=== PATIENT | female | born 1985 | race Caucasian/White ===

== ENCOUNTER 2016-12-27 21:57 | Emergency (ER) | payer OTHER ==
[~2016-12-27] VITALS: Ht 162.6 cm; Wt 55.9 kg
[~2016-12-27 21:57] MED LIST: COL100L PO; HYDR1TAB91 PO; IBUP-1152 PO; PREN-121 PO
[2016-12-27 22:10] VITALS: BP 151/106; PULSE 105; RESP 18; O2SAT 98
[2016-12-27] MEDS ORDERED: 0.9% Sodium Chloride 1,000 ML IV ONE (23:56)
[2016-12-28] MEDS ORDERED: Clindamycin Inj 900 MG in IV Premix 1 EACH IV ONE
--- NOTE | 2016-12-28 00:11 | ED.REPORT ---
HPI-General Illness Date of Service Dec 27, 2016 ED Provider: Mark Plasencia MD The patient is a 31 yo female with history of HTN and fibromyalgia who presents to the ED with her mother for a right 4th finger infection for 2-3 weeks. She reports to injure her finger somehow while doing some gardening. She is certain that it was not a thorn. The pain is minimal and she has been applying topical Neosporin. However, she tends to bite her nails and possibly makes the infection worse. She has noted some pus coming out from the corner of the nail. Around 1500 today, she notes some pain in her right arm, like "a pulled muscle. " The pain turns into a red streak from the elbow up to her axilla at around 1800 tonight, and thus she is concerned of a "septic shock." Patient otherwise denies any symptoms, including fever, chills, headache, CP, SOB, nausea, or vomiting. She reports to have fast heart rate usually and her PCP has done workups in the past but everything has been negative. Her home BP is usually controlled in the 120s/80s with HCTZ. Of note, patient was diagnosed with MRSA cellulitis on her cheek 6 years ago, but she was not hospitalized then. She was treated with Bactrim as outpatient and reports no complication. Nursing Notes Stated Complaint: RED LINE UP ARM Chief Complaint: Skin Rash/Abscess Nursing Notes Reviewed: Yes Allergies: Coded Allergies: No Known Allergies (Verified Allergy, Unknown, 12/27/16) Scheduled VIT #108/IRON/FA-Expunged Drug, Do N ( ONE-Expunged Drug, Do Not Renew!) 1 Each Tablet 1 EACH PO DAILY Scheduled PRN Docusate Sod-Expunged Drug, Do Not Renew! (Docusate Sod-Expunged Drug, Do Not Renew!) 10 Mg/1 Ml Liqd 100 MG PO BID PRN PRN Hydrocod/APAP-Expunged, Do Not Renew! (Hydrocod/APAP-Expunged, Do Not Renew!) 1 Each Tablet 1-2 EA PO Q3 PRN PRN IBUPROFEN-Expunged Drug, Do Not Renew! (IBUPROFEN-Expunged Drug, Do Not Renew!) 800 Mg Tablet 800 MG PO Q6 PRN PRN General Time Seen by MD: 23:40 Chief Complaint Rash Hx Obtained From: Patient, Other family... (Mother) Arrived By: Walk-in Sudden in Onset?: Yes Onset Occurred: More than a week ago... (2 months) Symptom Duration: Since onset Context: Occurred at: Home injury Location: : Arm right Quality: Cramping Radiation: : Does not radiate Severity: Current: Mild Severity: Maximum: Moderate Associated with: Reports: Discharge (occasional purulent discharge), Pain, Rash , Denies: Congestion, Cough, Nausea, Numb extremities, Vomiting, Weakness Pertinent Negative: Pt denies other symptoms Pertinent Negative: Exacerbated by nothing, Relieved by nothing Recent Healthcare: No recent doctor visit, No recent hospitalization Similar Sx Previous: No Past Medical History Past Medical History Fibromyalgia Reports: Hypertension Past Surgical History None Family History Fibromyalgia Reports: Hypertension Smoking History Current Every Day Smoker (10-12 cigarettes/day) Social History Alcohol Use: Denies alcohol use Drug Use: Denies drug use Other Social History: , Lives with children Ambulatory Status Independent Review of Systems Full Review of Systems Constitutional: Denies: Chills, Fatigue, Fever Respiratory: Denies: Shortness of breath, Wheezing Cardiovascular: Reports: Palpitations, Denies: Chest pain, Edema GI: Denies: Abdominal pain, Anorexia, Nausea, Vomiting Female: Denies: Dysuria, Flank pain Musculoskeletal: Denies: Back pain, Joint pain, Joint swelling, Lumbar pain, Myalgia Hematologic: Denies Adenopathy Skin: Reports Rash Neurologic: Denies: Abnormal movement, Confusion, Dizziness, Focal weakness, Headache, Lightheaded, Numbness Psychiatric: Reports: Anxiety, Stress, Denies: Depression Complete sys rev & neg: except as marked. Physical Exam Vital Signs Vital Signs Date Time Temp Pulse Resp B/P Pulse Ox O2 Delivery O2 Flow Rate FiO2 12/28/16 02:11 105 18 130/96 99 Room Air 12/27/16 22:10 36.6 105 18 151/106 98 Room Air Initial VS: Reviewed (tachycardia and hypertensive), Vital signs abnormal General/Constitutional: Well-developed, Well-nourished Head / Eyes: Atraumatic, Normocephalic, PERRL ENT: Mucous membranes moist, Conjunctiva normal, No scleral icterus Neck: Supple, Non-tender, Full range of motion Respiratory: Breath sounds normal, Clear to auscultation, No respiratory distress Cardiovascular: Regular rate & rhythm, Heart sounds normal, Intact distal pulses Abdomen / GI: Soft, Non-tender, No guarding, No rebound, No distention Lymphatic: No lymphadenopathy Extremities: Vascular intact, Neuro intact Skin: Warm, Dry, No cyanosis Neurologic: Alert, Oriented, Nonfocal Psychiatric: Mood/affect normal, Behavior normal, Normal thought content Rash / Lesion Notes: Right 4th finger: moderate swelling and erythema from the tip of the finger down to DIP joint. Nontender to palpation at either DIP or PIP. Minimal serous drainage at the upper corner of the nail. Lymphangitis noted on the right inner arm from mid arm up to the axilla. No lymph node palpated in the axilla. Interpretation & Diagnostics Lab Results Interpretation Result Diagram: 12/28/16 0000 12/28/16 0000 Test 12/28/16 00:00 White Blood Count 8.8th/mm3 (3.8-10.1) Red Blood Count 4.83mil/mm3 (3.90-5.20) Hemoglobin 15.3g/dL (12.0-15.6) Hematocrit 43.2% (35.0-46.0) Mean Corpuscular Volume 89.4fL (81-100) Mean Corpuscular Hemoglobin 31.7pg (27.0-35.0) Mean Corpuscular Hemoglobin Concent 35.4% (32.0-37.0) Red Cell Distribution Width 13.0% (12.3-15.4) Platelet Count 301bil/L (150-400) Neutrophils (%) (Auto) 59.4% (40-74) Lymphocytes (%) (Auto) 26.8% (14-46) Monocytes (%) (Auto) 8.3% (4-12) Eosinophils (%) (Auto) 4.7% (0-5) Basophils (%) (Auto) 0.6% (0-3) Sodium Level 137mEq/L (134-144) Potassium Level 3.6mEq/L (3.5-5.2) Chloride Level 100mEq/L (97-108) Carbon Dioxide Level 22mmol/L (18-29) Blood Urea Nitrogen 10mg/dL (6-20) Creatinine 0.62mg/dL (0.57-1.00) Estimat Glomerular Filtration Rate 161mL/min (>59) Glucose Level 86mg/dL (60-99) Lactic Acid Level 0.8mmol/L (0.4-2.0) Calcium Level 9.0mg/dL (8.5-10.1) Total Bilirubin 0.3mg/dL (0.0-1.2) Aspartate Amino Transf (AST/SGOT) 15U/L (0-50) Alanine Aminotransferase (ALT/SGPT) 12U/L (0-32) Alkaline Phosphatase 83U/L (25-150) Total Protein 7.3g/dL (6.4-8.4) Albumin 4.3g/dL (3.4-5.0) Lab values outside NL range: no clinical significance. Lab Results Interpretation: Blood culture pending Re-Eval/Medical Decision Med Decision/Clinical Course 31 yo female with history of HTN and fibromyalgia who presents to the ED with her mother for a right 4th finger infection for 2-3 weeks. She develops lymphangitis on the right arm today with no other associated or systemic symptoms. Patient is affirmative that there was no thorns involved. There is apparent cellulitis on the tip of the right 4th finger with no abscess or fluctuance palpated. Sporotrichosis is on the differential, but is less likely given no thorn exposure or the typical appearance of cutaneous sporotrichosis. Because of her tachycardia and obvious source of infection, a blood culture was done and patient was started on IV Clindamycin and IVF. Patient has a history of MRSA cellulitis on her cheek 5-6 years ago. Patient was discharged home on 10 days of Clindamycin PO and was recommended to take Probiotics while on antibiotics. She will return to the ER if the infected finger does not improve or if the lymphangitis (Red streak) spreads further. Time of Eval: 01:15 Patient Status: Condition improved Re-Evaluation/Progress Note: After Betadine soak, finger wound appears clean with minimal bleeding. No purulent discharge noted. Patient received 1L of NS and 1 dose of Clindamycin 900mg IV. Normal labs reviewed with the patient and plan to discharge home on Clindamycin oral. Differential Diagnosis: Positive: Cellulitis Sporotrichosis Counseled Regarding: Diagnosis, Lab results, Need for follow-up, When/why to return to ED Discharge & Departure Primary Impression: Cellulitis Site of cellulitis: extremity Site of cellulitis of extremity: finger Laterality: right Qualified Code: L03.011 - Cellulitis of right finger Disposition: Home Discharge Condition All VS Reviewed: Yes Condition: Stable Patient Instructions: Cellulitis (ED) Additional Instructions: The wound on your right ring finger appears infected, which probably has spread upward. Therefore, antibiotic is indicated. Because of your fast heart rate and the apparent source of infection, we were concerned of sepsis. All the labs came back normal. The blood culture will take a few days, but will likely be negative. We will contact you if there is any bacteria growth in your blood. You received a dose of IV antibiotic in the ER. We also give you more antibiotic to go home with. Please take it as directed for 10 days. Follow up with your PCP in a week. You should keep your wound clean at all time and wash your hands often. Continue to apply topical Neosporin and cover it with bandage during the day. If the red streak spreads further or if you develop high fever, nausea, vomiting , or headache, please return to the ER. Referrals: OTHER,PHYSICIAN 1 Week [facility] Attending Statement The patient was seen and examined together with Dr. Ria Stephen and I agree with the history, exam and plan as outlined in the note above. copies to: JASMYN,Marcos Bella DO Dec 28, 2016 00:11 Mark Plasencia MD Dec 28, 2016 06:28
[2016-12-28 00:21] LABS: BASOPHILS % (AUTO) 0.6 % (0-3); EOSINOPHILS % (AUTO) 4.7 % (0-5); MONOCYTES % (AUTO) 8.3 % (4-12); Mean Corpuscular Hemoglobin 31.7 pg (27.0-35.0); Mean Corpuscular Volume 89.4 fL (81-100); NEUTROPHILS % (AUTO) 59.4 % (40-74); Platelet Count 301 bil/L (150-400)
[2016-12-28 02:11] VITALS: BP 130/96; PULSE 105; RESP 18; O2SAT 99
[2016-12-28] MEDS ORDERED: _Clindamycin 150 mg Capsule PO SCH (06:30)
== END 2016-12-28 02:00 | disposition home or self-care (01) ==
LOC: MERGE 21:57 → SED 21:57
DX: L03.011 Cellulitis of right finger (principal); X58.XXXA Exposure to other specified factors, initial encounter; Y93.H2 Activity, gardening and landscaping; Y92.009 Unspecified place in unspecified non-institutional (private) residence as the place of occurrence of the external cause; Y99.8 Other external cause status; I10 Essential (primary) hypertension; M79.7 Fibromyalgia; F17.200 Nicotine dependence, unspecified, uncomplicated; Z86.14 Personal history of Methicillin resistant Staphylococcus aureus infection
CPT/HCPCS: 36415; 80053; 83605; 85025; 87040; 96365; 99284; J7030